=== PATIENT | female | born 1965 | race Caucasian/White ===

== ENCOUNTER → 2019-04-12 | Day surgery (SDC) | payer OTHER, MEDICAID ==
[~2019-04-12] MED LIST: ALLO100T PO; APIX5TAB PO; ATORVASTATIN CA80 MG PO; FURO40TA4 PO; IBUP-1060 PO; IV RINGERS,LACTATED 1000ML 1,000 ML IV SCH; MULT1TAB52 PO; POTA20TA4 PO; PROPOFOL 20 ML IV ONE; SOTA80TA48 PO
--- NOTE | 2019-04-12 15:07 | PDOC4 ---
PROCEDURE Procedure Flexible sigmoidoscopy with biopsy. IND: H/o adenoma/status-post abdominal colectomy and ileostomy Meds: per anesthesia Findings: JOHN normal. --'Scope advanced to ~80cm. Definite anastomosis not seen, though clearly in small bowel. Mucosa normal. One small diverticulum seen. 2-3mm rectal polyp, biopsied olf. Exam otherwise normal. Marco. well. IMP: diverticulosis One small polyp. S/p abdominal colectomy with ileocolonic anastomosis REC: Resume home meds and diet. Await path. F/u with me in 2 weeks. JOHNATHAN PRATER MD Apr 12, 2019 15:07
[2019-04-12 15:24] VITALS: BP 120/60
--- NOTE | 2019-04-14 15:06 | PATHOLOGY ---
[facility] Accession Number: [id number] . 01 Material submitted: . rectum - BIOPSY RECTAL POLYP . 01 Clinical history: . Screening . 02 Diagnosis: Colorectal biopsy, rectal polyp: - Hyperplastic polyp. . ([facility]; 04/14/2019) [facility]/04/14/2019 . 02 Comment: There are no adenomatous changes or evidence of malignancy. . (JP:mm; 04/14/2019) . 02 Electronically signed: . Tee Myers MD, Pathologist NPI- [id number] . 01 Gross description: . The specimen is received in formalin, labeled "AzaelVirginia wellington, BX rectal polyp" and consists of a fragment of yi tissue measuring 0.3 x 0.3 x 0.2 cm which is entirely submitted in A1. ([facility]; 04/13/2019) SYU/SYU . 02 Pathologist provided ICD-10: K62.1, Z12.11 . 02 CPT . 366391 Specimen Comment: A courtesy copy of this report has been sent to Specimen Comment: [phone], . Specimen Comment: Report sent to / DR ALEX Performed at: 01 [facility] [address], [place], [place] [id number] MD Sriram Chavez MD Phone: [phone] Performed at: 02 [facility] [address], [place] [id number] MD Tee Myers MD Phone: [phone]
== END ==
LOC: ENDOS 13:36
PROVIDERS: ATTEND Internal Medicine Gastroenterology
DX: Z12.11 Encounter for screening for malignant neoplasm of colon (principal); K62.1 Rectal polyp; K57.30 Diverticulosis of large intestine without perforation or abscess without bleeding; Z98.0 Intestinal bypass and anastomosis status; E78.00 Pure hypercholesterolemia, unspecified; J45.909 Unspecified asthma, uncomplicated; M19.90 Unspecified osteoarthritis, unspecified site; I50.9 Heart failure, unspecified; G47.33 Obstructive sleep apnea (adult) (pediatric); Z87.891 Personal history of nicotine dependence; Z86.010 Personal history of colon polyps; Z72.89 Other problems related to lifestyle; Z79.899 Other long term (current) drug therapy; Z98.51 Tubal ligation status; Z90.49 Acquired absence of other specified parts of digestive tract; Z98.890 Other specified postprocedural states
CPT/HCPCS: 45380; 88305; J2704